=== PATIENT | male | born 1980 | race Caucasian/White ===

== ENCOUNTER 2021-02-24 16:16 | Emergency (ER) | payer OTHER ==
[2021-02-24] MEDS ORDERED: IBU400 MG PO (18:47)
== END 2021-02-24 19:00 | disposition home or self-care (01) ==
LOC: ER1 16:16
DX: S90.32XA Contusion of left foot, initial encounter (principal); Z88.1 Allergy status to other antibiotic agents; Z79.899 Other long term (current) drug therapy; X58.XXXA Exposure to other specified factors, initial encounter
CPT/HCPCS: 73610; 73630; 99283

== ENCOUNTER 2021-02-26 11:26 | Emergency (ER) | payer OTHER ==
[~2021-02-26 11:26] MED LIST: IBU400 MG PO
== END 2021-02-26 13:08 | disposition home or self-care (01) ==
LOC: ER1 11:26
DX: S97.82XA Crushing injury of left foot, initial encounter (principal); Z79.899 Other long term (current) drug therapy; Z88.1 Allergy status to other antibiotic agents; X58.XXXA Exposure to other specified factors, initial encounter; Y92.89 Other specified places as the place of occurrence of the external cause; Y99.0 Civilian activity done for income or pay
CPT/HCPCS: 73630; 99283

== ENCOUNTER → 2022-01-09 | Outpatient (CLI) | payer OTHER | LOC: KOH-I 14:22 | DX: M79.641 Pain in right hand (principal); M79.642 Pain in left hand; M15.1 Heberden's nodes (with arthropathy) | CPT/HCPCS: 73130 ==